=== PATIENT | male | born 1995 | race Two or more races ===

== ENCOUNTER 2021-07-27 17:11 | Emergency (ER) | payer BC ==
[~2021-07-27] VITALS: Ht 170.2 cm; Wt 74.8 kg
[2021-07-27 17:33] VITALS: BP 141/88
[2021-07-27] MEDS ORDERED: IBUP-1955 PO (19:13)
--- NOTE | 2021-07-27 19:27 | NUR ---
STREP DONE, SENT TO LAB.
[2021-07-27 19:41] LABS: MONOTEST NEGATIVE (NEGATIVE)
== END 2021-07-27 19:28 | disposition home or self-care (01) ==
LOC: ER 17:18
DX: R50.9 Fever, unspecified (principal); B34.9 Viral infection, unspecified; Z20.822 Contact with and (suspected) exposure to COVID-19; R03.0 Elevated blood-pressure reading, without diagnosis of hypertension; Z11.3 Encounter for screening for infections with a predominantly sexual mode of transmission
CPT/HCPCS: 36415; 86308; 87070; 87426; 87491; 87591; 87880; 99283; C9803; 86403-TC

== ENCOUNTER 2021-07-29 20:47 | Emergency (ER) | payer BC ==
[~2021-07-29] VITALS: Ht 177.8 cm; Wt 77.1 kg
[~2021-07-29 20:47] MED LIST: IBUP-1955 PO
[2021-07-29] MEDS ORDERED: DOXYCYCLINE HYCLATE (100 MG) 100 MG TABLET ONE (21:39)
[2021-07-29] MEDS ORDERED: DOXY100C2 PO (21:40)
[2021-07-29 21:42] VITALS: BP 130/78
[2021-07-29] MEDS ORDERED: DOXYCYCLINE HYCLATE (100 MG) 100 MG TABLET PO ONE (22:00)
== END 2021-07-29 22:02 | disposition home or self-care (01) ==
LOC: ER 20:47
DX: A74.9 Chlamydial infection, unspecified (principal); Z79.899 Other long term (current) drug therapy